=== PATIENT | female | born 1985 | race Caucasian/White ===

== ENCOUNTER 2016-11-13 17:45 | Observation (INO) | payer MEDICAID ==
[~2016-11-13] VITALS: Ht 160 cm; Wt 54.0 kg
[~2016-11-13 17:45] MED LIST: LISI-360 PO; METH10TA PO; XANA1TAB6 PO
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
[2016-11-13] MEDS ORDERED: DEXTROSE 5%-LACTATED RING INJ 1,000 ML IV ONE (18:45)
[2016-11-13 19:39] LABS: BACTERIA, URINE MANY /hpf; BLOOD, URINE NEG (NEG); COMMENT (UR) CULTURE INDICATED; CULTURE IF INDICATED CULTURE INDICATED; GLUCOSE,URINE NEG (NEG); KETONE, URINE NEG (NEG); NITRITE,URINE NEG (NEG); SQUAMOUS EPITHELIAL CELL URINE <1 /hpf (0-5); URINE COLOR YELLOW (YELLW/STRAW)
[2016-11-13] MEDS ORDERED: cloNIDine HCL 0.1 MG TAB PO PRN (19:45)
[2016-11-13] MEDS ORDERED: SODIUM CHLORIDE 0.9% FLUSH 10 ML FLUSH IV FLUSH PRN (19:45)
[2016-11-13] MEDS ORDERED: PROMETHAZINE HCL 25 MG TAB PO PRN (19:45)
[2016-11-13] MEDS ORDERED: ONDANSETRON ODT 4 MG TAB PO PRN (19:45)
[2016-11-13] MEDS ORDERED: ACETAMINOPHEN 325 MG TAB PO PRN (19:45)
[2016-11-13] MEDS ORDERED: ONDANSETRON HCL 4 MG/2 ML VIAL IV PRN (19:45)
[2016-11-13] MEDS ORDERED: ALUMINUM/MAGNESIUM/SIMETH 30 ML CUP PO PRN (19:45)
[2016-11-13 20:38] LABS: HEMATOCRIT 28.1 % (35.0-46.0); MEAN CELL VOLUME 90.2 FL (80.0-100.0); MEAN CORPUSCULAR HEMOGLOBIN 29.9 PG (27.0-34.0); MEAN CORPUSCULAR HGB CONC 33.1 % (32.0-36.0); PLATELET COUNT 282 TH/MM3 (150-450); RED BLOOD COUNT 3.11 MIL/MM3 (4.00-5.30); RED CELL DISTRIBUTION WIDTH 13.1 % (11.6-17.2); REVIEW FLAG FINAL; WHITE BLOOD COUNT 8.9 TH/MM3 (4.0-11.0)
[2016-11-13] MEDS: SODIUM CHLORIDE 0.9% FLUSH 10 ML FLUSH IV FLUSH SCH (21:00)
[2016-11-13 21:02] LABS: ALT (GPT) 13 U/L (10-53); ANION GAP 8 MEQ/L (5-15); AST (GOT) 15 U/L (15-37); BICARBONATE 26.7 MEQ/L (21.0-32.0); BLOOD UREA NITROGEN 7 MG/DL (7-18); CHLORIDE 103 MEQ/L (98-107); GLOMERULAR FILTRATION RATE 106 ML/MIN (>89); POTASSIUM 3.8 MEQ/L (3.5-5.1); SODIUM (NA) 138 MEQ/L (136-145)
[2016-11-13 21:05] LABS: ALKALINE PHOSPHATASE 140 U/L (45-117); TOTAL BILIRUBIN ADULT 0.2 MG/DL (0.2-1.0)
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
[2016-11-13 21:43] LABS: RUBELLA STATUS IMMUNE (IMMUNE)
[2016-11-13] MEDS: ALPRAZolam 1 MG TAB PO SCH (22:09)
[2016-11-14] MEDS: ALPRAZolam 1 MG TAB PO SCH (06:00)
[2016-11-14] MEDS ORDERED: DEXTROSE 5%-LACTATED RING INJ 1,000 ML IV ONE (08:30)
[2016-11-14] MEDS: SODIUM CHLORIDE 0.9% FLUSH 10 ML FLUSH IV FLUSH SCH ×2 (09:20→21:00)
[2016-11-14] MEDS: MULTIVIT/MIN/PREN/FOL AC/IRON PRENATAL TAB PO SCH (09:26)
[2016-11-14] MEDS: DOCUSATE SODIUM 100 MG CAP PO SCH (09:27)
[2016-11-14] MEDS: ALPRAZolam 1 MG TAB PO PRN ×2 (09:28→19:47)
--- NOTE | 2016-11-14 09:51 | PD.OB.ANTE ---
Subjective Interval History 31 turkish swf at 36 5/7 by dates from other sources, brought to [facility] after missing her ultrasound appointment in my office this week and not getting her opioid maintenance medication renewed. She is in active addiction and not yet ready for recovery, actively deceiving us and others involved in her life. Last UDS in my office on 10/29 was positive for many opioids, methamphetamine, benzo' s. She does insists she is not using anything IV at this time. She is likely snorting or taking by mouth or smoking. She was first seen at the [facility] clinic and asked to be transitioned from 140 mg methadone daily as she can no longer afford. We discussed and I gave her one week of oxy 30's , seven per day, based on her described usage patterns. The second visit with the positive UDS, she was counseled in great detail, with her significant other present, and given oxy 30's six per day. We explained we will transition her to subutex soon , but she has many rationalizations like she can't afford, etc. I explained we need a fur cleaner urine to get pre authorization from [facility]. When she missed her Thursday appointment, she did not get any opioid renewal. She states her last dose was Thursday. She was obviously impaired on admission yesterday, when I evaluated her with Dr. Gonzales. She appears impaired this am. 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 She is slurring her words. Our hospital urine drug screen is inadequate to picker/puller specific opioids, benzo's and other substances and is still pending. Objective Lab & Micro Results Test 11/13/16 18:50 11/13/16 19:20 Urine Color YELLOW Urine Turbidity HAZY Urine pH 6.0 Urine Specific [place] 1.005 Urine Protein NEG mg/dL Urine Glucose (UA) NEG mg/dL Urine Ketones NEG mg/dL Urine Occult Blood NEG Urine Nitrite NEG Urine Bilirubin NEG Urine Urobilinogen LESS THAN 2.0 MG/DL Urine Leukocyte Esterase NEG Urine RBC LESS THAN 1 /hpf Urine WBC LESS THAN 1 /hpf Urine Squamous Epithelial Cells <1 /hpf Urine Amorphous Sediment RARE Urine Bacteria MANY /hpf Microscopic Urinalysis Comment CULTURE INDICATED White Blood Count 8.9 TH/MM3 Red Blood Count 3.11 MIL/MM3 Hemoglobin 9.3 GM/DL Hematocrit 28.1 % Mean Corpuscular Volume 90.2 FL Mean Corpuscular Hemoglobin 29.9 PG Mean Corpuscular Hemoglobin Concent 33.1 % Red Cell Distribution Width 13.1 % Platelet Count 282 TH/MM3 Mean Platelet Volume 8.3 FL Blood Urea Nitrogen 7 MG/DL Creatinine 0.65 MG/DL Random Glucose 68 MG/DL Total Protein 6.0 GM/DL Albumin 2.5 GM/DL Calcium Level 8.8 MG/DL Alkaline Phosphatase 140 U/L Aspartate Amino Transf (AST/SGOT) 15 U/L Alanine Aminotransferase (ALT/SGPT) 13 U/L Total Bilirubin 0.2 MG/DL Sodium Level 138 MEQ/L Potassium Level 3.8 MEQ/L Chloride Level 103 MEQ/L Carbon Dioxide Level 26.7 MEQ/L Anion Gap 8 MEQ/L Estimat Glomerular Filtration Rate 106 ML/MIN Urine Opiates Screen NEG Urine Barbiturates Screen NEG Urine Amphetamines Screen NEG Urine Benzodiazepines Screen POS Urine Cocaine Screen NEG Urine Cannabinoids Screen NEG Rubella Immunity Screen IMMUNE Rubella Antibody, Quantitative 339.0 IU/mL Date/Time Source Procedure Growth Status 11/13/16 18:50 Urine Clean Catch Urine Culture Pending Received Physical Exam GENERAL: Well-nourished, well-developed patient. CARDIOVASCULAR: Regular rate and rhythm without murmurs, gallops, or rubs. RESPIRATORY: Breath sounds equal bilaterally. No accessory muscle use. ABDOMEN/GI: Abdomen soft, non-tender. FH 34 cervix long closed posterior strip has diminished BTBV but not absent. No declerations. EXTREMITIES: No cyanosis or edema, non-tender, without signs of DVT. Assessment and Plan Problem List: (1) Opioid abuse with intoxication ICD Codes: F11.129 - Opioid abuse with intoxication, unspecified (2) Opioid abuse with opioid-induced disorder ICD Codes: F11.19 - Opioid abuse with unspecified opioid-induced disorder (3) Previous section ICD Codes: Z98.891 - History of uterine scar from previous surgery Assessment and Plan Need ultrasound today to assess status will like need repeat C/S when appropriate (prior section was after failed induction for pre eclampsia) consider PC or better [place] if family will help. nicotine patch and oxy's today. Declines Subutex unfortunately Goal is to minimize illicit use with risk of contamination etc. by providing legal and safe opioid until delivery. Ideally needs in patient monitoring as she cannot be trusted. Yadira Lacey MD Nov 14, 2016 09:51
[2016-11-14 21:00] VITALS: RESP 18
[2016-11-15] MEDS: ALPRAZolam 1 MG TAB PO PRN (03:59)
--- NOTE | 2016-11-15 08:17 | PD.OB.ANTE ---
Subjective Diagnosis: (1) Opioid abuse with intoxication (2) Opioid abuse with opioid-induced disorder (3) Previous section Interval History HD#2, No significant c/o Objective Vital Signs Vital Signs Date Time Temp Pulse Resp B/P (MAP) Pulse Ox O2 Delivery O2 Flow Rate FiO2 11/14/16 21:00 18 Lab & Micro Results Date/Time Source Procedure Growth Status 11/13/16 18:50 Urine Clean Catch Urine Culture - Preliminary NO GROWTH IN 24 HOURS. Resulted Physical Exam GENERAL: Well-nourished, well-developed patient. CARDIOVASCULAR: Regular rate and rhythm without murmurs, gallops, or rubs. RESPIRATORY: Breath sounds equal bilaterally. No accessory muscle use. ABDOMEN/GI: Abdomen soft, non-tender.] FHT's: Category: 1, no UC EXTREMITIES: No cyanosis or edema, non-tender, without signs of DVT. Assessment and Plan Problem List: (1) Opioid abuse with intoxication ICD Codes: F11.129 - Opioid abuse with intoxication, unspecified (2) Opioid abuse with opioid-induced disorder ICD Codes: F11.19 - Opioid abuse with unspecified opioid-induced disorder (3) Previous section ICD Codes: Z98.891 - History of uterine scar from previous surgery Assessment and Plan 36 6/7 weeks, stable, care plan delineated by Dr Lacey. Geovani Gramajo MD Nov 15, 2016 08:17
[2016-11-15] MEDS: SODIUM CHLORIDE 0.9% FLUSH 10 ML FLUSH IV FLUSH SCH (08:28)
[2016-11-15] MEDS: MULTIVIT/MIN/PREN/FOL AC/IRON PRENATAL TAB PO SCH (09:00)
[2016-11-15] MEDS ORDERED: NICOTINE 21 MG/24 HR PATCH T-DERMAL SCH (09:00)
[2016-11-15] MEDS ORDERED: REMOVE OLD PATCH T-DERMAL SCH (09:00)
[2016-11-15] MEDS: DOCUSATE SODIUM 100 MG CAP PO SCH (09:00)
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
[2016-11-15] MEDS ORDERED: CLON.1 PO (09:24)
[2016-11-15] MEDS ORDERED: OXYC-395 PO (09:24)
[2016-11-15] MEDS ORDERED: HYDR50CA PO (09:24)
[2016-11-15] MEDS ORDERED: XANA1TAB2 PO (09:24)
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
--- NOTE | 2016-11-15 09:27 | HHI.DCPOC ---
Discharge Care Plan Report Symptoms to Your Doctor -Temperature above 100.5 degrees -Redness, of incision or excessive or foul smelling drainage -Unusual pain or calf pain -Increased vaginal bleeding -Painful or difficulty urinating -Feelings of extreme sadness or anxiety after 2 weeks Goals to Promote Your Health * To prevent worsening of your condition and complications * To maintain your health at the optimal level Directions to Meet Your Goals Take your medications as prescribed Follow your dietary instruction Follow activity as directed Ensure plenty of rest for recovery Drink fluids for hydration RETURN FOR THURSDAY C SECTION Keep your appointments as scheduled Take your immunizations and boosters as scheduled If your symptoms worsen call your PCP, if no PCP go to Urgent Care Center or Emergency Room Smoking is Dangerous to Your Health. Avoid second hand smoke Call the 24-hour crisis hotline for domestic abuse at Yadira Lacey MD Nov 15, 2016 09:27
[2016-11-18 14:41] LABS: BATH SALTS (MDPV) UR NEG (NEG); ECSTASY (MDMA) UR NEG (NEG); GABAPENTIN UR NEG (NEG); HEROIN (6-ACETYLMORPHINE) UR NEG (NEG); K2 SPICE UR NEG (NEG); PHENCYCLIDINE URINE NEG (NEG)
[2016-11-18 14:42] LABS: HYDROMORPHONE U NEG (NEG)
[2016-11-18 14:47] LABS: OBMETHADONE UR POS (NEG)
== END 2016-11-15 11:51 | disposition home or self-care (01) ==
LOC: HOBED 17:45 → H2EA 20:38
PROVIDERS: ADMIT Obstetrics & Gynecology; ATTEND Obstetrics & Gynecology
DX: O99.324 Drug use complicating childbirth (principal); F11.10 Opioid abuse, uncomplicated; Z3A.36 36 weeks gestation of pregnancy; O09.213 Supervision of pregnancy with history of pre-term labor, third trimester; G89.29 Other chronic pain; M54.9 Dorsalgia, unspecified; R82.99 Other abnormal findings in urine; Z91.19 Patient's noncompliance with other medical treatment and regimen
CPT/HCPCS: 59025; 80053; 80074; 80307; 81001; 85027; 86592; 86762; 86850; 86900; 86901; 87086; 87389; 99285; G0378; G0481; J7121; 76816; 76819

== ENCOUNTER 2016-11-15 20:58 | Inpatient (IN) | payer MEDICAID ==
[~2016-11-15] VITALS: Ht 160 cm; Wt 72.1 kg
[~2016-11-15 20:58] MED LIST changes: +CLON.1 PO; +HYDR50CA PO; +OXYC-395 PO; +XANA1TAB2 PO
--- NOTE | 2016-11-15 23:42 | PD ---
HPI Chief Complaint NST report Indications: IUP at 36.6, insufficient care, history of IV drug abuse, polysubstance abuse, abdominal pain, prior delivery FHT: heart rate baseline in the 120s with good accelerations and moderate long-term variability, there are no repetitive decelerations but a couple small variables were noted upon presentation however have since resolved [place]: No regular contractions Follow-up: Continue EFM Final diagnosis: IUP at 36.6, insufficient care, history of IV drug abuse, polysubstance abuse, abdominal pain, prior delivery Travel History International Travel<30 Days: No Contact w/Intl Traveler<30Days: No Known Affected Area: No Allergies-Medications (Allergen,Severity, Reaction): Coded Allergies: No Known Allergies (Unverified , 10/19/14) Home Meds Active Scripts Oxycodone (Oxycodone) 10 Mg Tab, 30 MG PO Q6H Y for PAIN SCALE >5 for 2 Days, # 24 TAB Prov:Yadira Lacey MD 11/15/16 Hydroxyzine Pamoate (Hydroxyzine Pamoate) 50 Mg Cap, 50 MG PO Q6H Y for anxiety , agitation, rest for 2 Days, #8 CAP Prov:Yadira Lacey MD 11/15/16 Clonidine (Catapres) 0.1 Mg Tab, 0.1 MG PO Q6H Y for agitation, sweats, elevatedHR for 2 Days, #8 TAB Prov:Yadira Lacey MD 11/15/16 Alprazolam (Xanax) 1 Mg Tab, 1 MG PO Q8HR Y for anxiety for 2 Days, #6 TAB Prov:Yadira Lacey MD 11/15/16 Reported Medications Alprazolam (Xanax 1 mg) Alprazolam 1 mg Tab, 1 TAB PO TID Y for ANXIETY, TAB 10/03/14 Discontinued Reported Medications Methadone Hcl (Methadone HCl) 10 Mg Tab, 170 MG PO DAILY, TAB 10/03/14 Lisinopril 10 mg (Lisinopril 10 mg) 10 Mg Tab, 1 TAB PO DAILY, TAB 10/03/14 Review of Systems Except as stated in HPI: all other systems reviewed are Neg Data Data Orders Orders Ob/Psych Drug Screen, Urine (11/15/16 22:39) Ur Bath Salts (11/15/16 22:25) Ur Heroin (11/15/16 22:25) Ur K2 Spice (11/15/16 22:25) Ur Ecstasy (11/15/16 22:25) Phencyclidine Urine (Pcp) (11/15/16 22:25) Labs Laboratory Tests Test 11/15/16 22:25 Urine Opiates Screen NEG Urine Barbiturates Screen NEG Urine Amphetamines Screen NEG Urine Benzodiazepines Screen POS Urine Cocaine Screen NEG Urine Cannabinoids Screen NEG Lisbeth Gonzales MD Nov 15, 2016 23:41
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
[2016-11-16] MEDS ORDERED: NICOTINE 21 MG/24 HR PATCH T-DERMAL ONE (00:45)
[2016-11-16] MEDS: ALPRAZolam 1 MG TAB PO PRN ×3 (01:03→21:37)
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
[2016-11-16] MEDS: ONDANSETRON ODT 4 MG TAB PO PRN (04:08)
[2016-11-16] MEDS: cloNIDine HCL 0.1 MG TAB PO PRN (04:56)
[2016-11-16] MEDS: LACTATED RINGER'S 1000 ML IV SCH ×3 (07:15→20:35)
[2016-11-16] MEDS ORDERED: ceFAZolin 2 GM PREMIX 50 ML IV SCH (07:15)
[2016-11-16] MEDS ORDERED: CITRIC ACID-SODIUM CITRATE LIQ 30 ML UDC PO SCH (07:15)
[2016-11-16] MEDS ORDERED: LACTATED RINGER'S 1000 ML IV ONE (07:15)
[2016-11-16] MEDS: SODIUM CHLORIDE 0.9% FLUSH 10 ML FLUSH IV FLUSH SCH ×2 (08:23→21:00)
[2016-11-16 08:46] LABS: AUTOMATED NEUTROPHIL # 7.5 TH/MM3 (1.8-7.7); BASOPHIL % 0.4 % (0.0-2.0); EOSINOPHIL % 0.2 % (0.0-4.0); HEMATOCRIT 29.7 % (35.0-46.0); HEMO FLAGS DIFF FINAL; LYMPH % 27.6 % (9.0-44.0); LYMPHOCYTE # 3.1 TH/MM3 (1.0-4.8); MEAN CELL VOLUME 88.8 FL (80.0-100.0); MEAN CORPUSCULAR HEMOGLOBIN 31.7 PG (27.0-34.0); MEAN CORPUSCULAR HGB CONC 35.7 % (32.0-36.0); MONO % 5.7 % (0.0-8.0); NEUT % 66.1 % (16.0-70.0); PLATELET COUNT 310 TH/MM3 (150-450); RED BLOOD COUNT 3.34 MIL/MM3 (4.00-5.30); RED CELL DISTRIBUTION WIDTH 12.7 % (11.6-17.2); WHITE BLOOD COUNT 11.4 TH/MM3 (4.0-11.0)
--- NOTE | 2016-11-16 09:05 | PD.OB.ANTE ---
Subjective Interval History 31 yo swf [id number] at 37 0/7 weeks EGParish returned to [facility] late last evening with c/ o severe abdominal pain. High risk factors include polysubstance use, hx of prior section 18 months ago at 33 weeks for abruptio, poor care and axis 1 and II diagnoses not yet defined. Came to me through [facility] open acces clinic for substance users on 10/24/16 and has had three visits total. Only sonogram was this thursday revealing severe IUGR, placental aging with calcifications. Strip was initially poor due to recent substance use (undefined --not opioid and not on initial UDS) but improved with hydration and nutrition. Counseled on need for repeat section expediently but left yesterday to "get things done" after long conversation with me, nurses, and case sealer. Was to be using only oxycodone and small amount xanax but returned impaired with slurred speech and slow motor function. Strip is adequate without decels. Cervix long/closed posterior. Stated bleeding, but none seen. FH 35. Agrees to have section now. States pain is 9/10 with contractions and diffuse back pain. Expressing remorse and frustration. Has been counseled on risk of abruptio, uterine rupture, DIC, and risk of difficult procedure due to prior emergent section at 33 weeks. Antepartum ROS: Reports: New complaints, Contractions Objective Vital Signs Vital Signs Date Time Temp Pulse Resp B/P (MAP) Pulse Ox O2 Delivery O2 Flow Rate FiO2 11/16/16 04:09 18 Lab & Micro Results Test 11/15/16 22:25 11/16/16 00:46 11/16/16 08:00 Urine Opiates Screen NEG NEG Urine Barbiturates Screen NEG NEG Urine Amphetamines Screen NEG NEG Urine Benzodiazepines Screen POS POS Urine Cocaine Screen NEG NEG Urine Cannabinoids Screen NEG NEG White Blood Count 11.4 TH/MM3 Red Blood Count 3.34 MIL/MM3 Hemoglobin 10.6 GM/DL Hematocrit 29.7 % Mean Corpuscular Volume 88.8 FL Mean Corpuscular Hemoglobin 31.7 PG Mean Corpuscular Hemoglobin Concent 35.7 % Red Cell Distribution Width 12.7 % Platelet Count 310 TH/MM3 Mean Platelet Volume 9.3 FL Neutrophils (%) (Auto) 66.1 % Lymphocytes (%) (Auto) 27.6 % Monocytes (%) (Auto) 5.7 % Eosinophils (%) (Auto) 0.2 % Basophils (%) (Auto) 0.4 % Neutrophils # (Auto) 7.5 TH/MM3 Lymphocytes # (Auto) 3.1 TH/MM3 Monocytes # (Auto) 0.6 TH/MM3 Eosinophils # (Auto) 0.0 TH/MM3 Basophils # (Auto) 0.0 TH/MM3 CBC Comment DIFF FINAL Differential Comment Physical Exam GENERAL: Well-nourished, well-developed patient. CARDIOVASCULAR: Regular rate and rhythm without murmurs, gallops, or rubs. RESPIRATORY: Breath sounds equal bilaterally. No accessory muscle use. ABDOMEN/GI: Abdomen soft, non-tender. Fundus: 34 GENITOURINARY: External Genitalia: intact and normal in appearance long closed posterior and high FHT's: 150's with adequate BTBV no accels or decels EXTREMITIES: No cyanosis or edema, non-tender, without signs of DVT. no tracks or skin infection Assessment and Plan Assessment and Plan 37 week IUP with IUGR, premature placental aging ongoing active polysubstance use both opioid and non opioid poor care history previous section at 33weeks in 2016 for abruptio For section now will provide TAP and work on pain management in post Yadira Lacey MD Nov 16, 2016 09:05
[2016-11-16] MEDS ORDERED: SIMETHICONE 80 MG CHEWABLE TAB PO PRN (09:15)
[2016-11-16] MEDS ORDERED: SODIUM CHLORIDE 0.9% FLUSH 10 ML FLUSH IV FLUSH PRN ×2 (09:15)
[2016-11-16] MEDS ORDERED: ONDANSETRON HCL 4 MG/2 ML VIAL IV PUSH PRN (09:15)
[2016-11-16] MEDS ORDERED: ACETAMINOPHEN 1000 MG/100 ML 100 ML IV ONE ×2 (09:15→11:09)
[2016-11-16] MEDS ORDERED: BUPIVACAINE LIPOSOME PF 1.3% 20 ML VIAL ONE (09:35)
--- NOTE | 2016-11-16 10:01 | PD.OB.DELI ---
Procedure Note Section Procedure Pre Op Diagnosis: (1) IUGR (intrauterine growth retardation), delivered, current hospitalization (2) Opioid abuse with intoxication (3) Opioid abuse with opioid-induced disorder Post Op Diagnosis: (1) Opioid abuse with intoxication (2) Opioid abuse with opioid-induced disorder (3) IUGR (intrauterine growth retardation), delivered, current hospitalization Performed by Yadira Lacey Procedure: Repeat Low Transverse Sec Indication for delivery: Nonreassuring heart tracing, Maternal medical problems Previous condition: None Informed consent obtained: For anesthesia, For procedure Confirmed correct: Patient, Procedure, Site, Time-out taken Anesthesia: Spinal Medication prior to procedure: As documented in eMAR, Analgesics, Antacids, Antibiotics, IV, Antiemetics Monitoring during procedure: Blood pressure monitoring Urinary catheter: Inserted using sterile technique, To dependent drainage Sterile preparation: Duraprep, In usual fashion Position: Supine with wedge to right side Operative Features Skin Incision: Pfannenstiel Uterine Incision: Low transverse w/knife / blunt ext Membranes Ruptured: Artificially Presentation: Occiput anterior Delivery date: Nov 16, 2016 Delivery time: 10:00 Delivery of infant: Assisted Infant: Male One Minute : 9 Five Minute : 9 Weight: 5 8 Status of infant: Viable, Cord blood, Umbilical cord, Nursery present Placenta delivered: Intact, Sent to pathology Medications: Antibiotics, Oxytocin Estimated blood loss: 500 Procedure tolerated: Well Yadira Lacey MD Nov 16, 2016 10:01
[2016-11-16] MEDS ORDERED: OXYTOCIN 30 UNITS-500ML PREMIX 500 ML IV ONE (11:00)
[2016-11-16] MEDS ORDERED: OXYTOCIN 30 UNITS-500ML PREMIX 500 ML ONE (11:09)
[2016-11-16] MEDS ORDERED: MORPHINE SULFATE PF 5 MG/10 ML VIAL EPIDURAL ONE (12:00)
[2016-11-16] MEDS ORDERED: MIDAZOLAM HCL 2 MG/2 ML VIAL IV ONE (12:00)
[2016-11-16] MEDS ORDERED: LACTATED RINGER'S 1000 ML INJ 1,000 ML IV ONE (12:00)
[2016-11-16] MEDS ORDERED: ONDANSETRON HCL 4 MG/2 ML VIAL IV PUSH ONE (12:00)
[2016-11-16] MEDS ORDERED: OXYTOCIN 10 UNIT/ML AMP IV ONE (12:00)
[2016-11-16] MEDS ORDERED: DEXAMETHASONE SOD PHOS 4 MG/ML VIAL IV ONE (12:00)
[2016-11-16] MEDS ORDERED: EPIDURAL-NALOXONE HCL 0.4 MG/ML AMP IV PUSH PRN (14:00)
[2016-11-16] MEDS ORDERED: EPIDURAL-NO SYSTEMIC NARCOTICS PRN (14:00)
[2016-11-16] MEDS ORDERED: EPIDURAL-DO NOT ADMINISTER ANTICOAGULANTS PRN (14:00)
[2016-11-16] MEDS ORDERED: EPIDURAL-DIPHENHYDRAMINE HCL 50 MG CAP PO PRN (14:00)
[2016-11-16] MEDS ORDERED: EPIDURAL-DIPHENHYDRAMINE HCL 50 MG/ML VIAL IV PUSH PRN (14:00)
[2016-11-16 14:11] LABS: BLOOD, URINE NEG (NEG); COMMENT (UR) CULT NOT INDICATED; CULTURE IF INDICATED CULT NOT INDICATED; GLUCOSE,URINE NEG (NEG); KETONE, URINE NEG (NEG); MUCUS URINE FEW /lpf (OCC); NITRITE,URINE NEG (NEG); PH, URINE 7.5 (5.0-8.5); SQUAMOUS EPITHELIAL CELL URINE <1 /hpf (0-5); URINE COLOR YELLOW (YELLW/STRAW)
--- NOTE | 2016-11-16 16:22 | MP ---
cc: YADIRA DEVI DATE OF SURGERY: 11/16/2016. PREOPERATIVE DIAGNOSIS: 37-week intrauterine with polysubstance use disorder and active addiction, significant growth restriction and aging placenta. POSTOPERATIVE DIAGNOSIS: 37-week intrauterine with polysubstance use disorder and active addiction, significant growth restriction and aging placenta. OPERATION: Repeat low transverse segment section. SURGEON: Yadira Devi MD. BOILER HOUSE MECHANIC: January Cid. ANESTHESIA: Spinal with Duramorph followed by a tap. FINDINGS: A living male was delivered from [facility] with clear fluid and no nuchal cord. He weighed approximately 5 pounds and change. His Apgars were 9 at one and 9 at five. He was very hypertonic. The placenta was delivered manually with a three-vessel cord intact and sent to pathology. ESTIMATED BLOOD LOSS: 500 cc. COUNTS: Sponge, needle and instrument counts were correct. DISPOSITION: The mom and baby appeared to have tolerated the procedure well. The mom was very anxious and distraught during the procedure. DESCRIPTION OF THE PROCEDURE IN DETAIL: The patient was appraised both yesterday and today in detail of the indications for the surgery, the risks of the surgery, the risks of not proceeding at this time, benefits and expectations. She was taken to the back where she a was given a spinal with Duramorph and placed in dorsal supine position with weight off the vena cava. She received 2 grams of Ancef prior to cut. A time-out was performed with all in attendance. She had sequential stockings on. A Craig catheter had been placed after the spinal and we waited 3 minutes for the prep to dry. After assuring adequate analgesia, a Pfannenstiel's incision was made that excised her previous keloid and then it was taken down to the rectus fascia. The rectus fascia was incised laterally and taken off the rectus muscle. The rectus muscle was in the midline and the parietal peritoneum entered bluntly. A bladder flap was created off the lower uterine segment and an incision into the intrauterine cavity revealed clear fluid. The incision was extended in a vertical fashion bluntly and the was delivered with the findings as noted above. The cord was clamped x2 after a 45-second delay, cut and he was handed to the neonatology team in attending. A cord segment was obtained for gases and then cord blood was obtained. The uterus was left in situ to avoid additional postoperative pain in this pain- compromised individual. The placenta was delivered manually intact with a three-vessel cord. The uterus was cleaned of clot and closed with chromic in a running interlocking fashion with a second horizontal imbricating layer. Copious irrigation was then performed and then the incision was checked very carefully for hemostasis. Then the rectus muscle and peritoneum were closed together in a running fashion with care to avoid underlying bowel. Then the rectus fascia was closed with Vicryl in a non interlocking fashion. The area was irrigated again. The subcutaneous fat was closed with 3-0 plain and the skin was closed with 4-0 Vicryl on a Rafael needle. Estimated blood loss was 500 mL. Sponge, instrument, needle counts were correct. MD DONN Crawford/JCIrineo /10:02 AM /4:11 PM
[2016-11-16] MEDS: KETOROLAC TROMETHAMINE 60 MG/2 ML (IM) VIAL IM PRN (16:23)
[2016-11-16] MEDS: LACTATED RINGER'S 1000 ML INJ 1,000 ML IV SCH (17:53)
[2016-11-16] MEDS ORDERED: OXYTOCIN 30 UNITS-500ML PREMIX 500 ML IV PRN (19:15)
[2016-11-16] MEDS ORDERED: SODIUM CHLORIDE 0.9% FLUSH 10 ML FLUSH IV FLUSH SCH (21:00)
[2016-11-16] MEDS: DOCUSATE SODIUM 50 MG/SENNA 8.6 MG TAB PO PRN (21:37)
[2016-11-17] MEDS: LACTATED RINGER'S 1000 ML INJ 1,000 ML IV SCH (00:13)
[2016-11-17] MEDS: LACTATED RINGER'S 1000 ML IV SCH ×4 (03:15→23:15)
[2016-11-17 05:53] LABS: AUTOMATED NEUTROPHIL # 8.6 TH/MM3 (1.8-7.7); BASOPHIL % 0.2 % (0.0-2.0); EOSINOPHIL % 0.3 % (0.0-4.0); HEMATOCRIT 25.9 % (35.0-46.0); HEMO FLAGS DIFF FINAL; LYMPH % 27.1 % (9.0-44.0); LYMPHOCYTE # 3.5 TH/MM3 (1.0-4.8); MEAN CELL VOLUME 89.6 FL (80.0-100.0); MEAN CORPUSCULAR HEMOGLOBIN 30.2 PG (27.0-34.0); MEAN CORPUSCULAR HGB CONC 33.7 % (32.0-36.0); MONO % 6.3 % (0.0-8.0); NEUT % 66.1 % (16.0-70.0); PLATELET COUNT 281 TH/MM3 (150-450); RED BLOOD COUNT 2.89 MIL/MM3 (4.00-5.30); RED CELL DISTRIBUTION WIDTH 12.9 % (11.6-17.2)
[2016-11-17] MEDS: ALPRAZolam 1 MG TAB PO PRN ×3 (06:10→18:36)
[2016-11-17] MEDS ORDERED: ACETAMINOPHEN 1000 MG/100 ML VIAL IV ONE (08:15)
--- NOTE | 2016-11-17 08:16 | HHI.OB ---
Subjective Post Operative Day: 1 Remarks Complaining of pain 9/10 despite resting comfortably. not aggitated this am. Cigarettes at bedside and placed in purse and placed in corner Objective Vitals/I&O Intake & Output 11/17/16 11/17/16 07:00 19:00 Intake Total 3454 ml Balance 3454 ml Intake IV Total 3454 ml Result Diagram: 11/17/16 0432 Objective Remarks GENERAL: Well-nourished, well-developed patient. CARDIOVASCULAR: Regular rate and rhythm without murmurs, gallops, or rubs. RESPIRATORY: Breath sounds equal bilaterally. No accessory muscle use. ABDOMEN/GI: Abdomen soft, non-tender, bowel sounds present. Incision: Clean, dry and intact. Fundus: Firm, non-tender at umbilicus. GENITOURINARY: Light to moderate bleeding. EXTREMITIES: No cyanosis or edema, non-tender, without signs of DVT. Medications and IVs Current Medications Medications (Trade) Dose Ordered Sig/Teddy Route Start Time Stop Time Status Last Admin (Tylenol) 650 mg Q4H PRN PO 11/16/16 00:00 (NS Flush) 2 ml BID IV FLUSH 11/16/16 09:00 (NS Flush) 2 ml UNSCH PRN IV FLUSH 11/16/16 00:00 (Zofran Odt) 4 mg Q6H PRN PO 11/16/16 00:00 11/16/16 04:08 (Roxicodone) 30 mg Q6H PRN PO 11/16/16 01:00 11/17/16 06:10 (Xanax) 1 mg Q8H PRN PO 11/16/16 00:45 11/17/16 06:10 (Catapres) 0.1 mg Q6H PRN PO 11/16/16 00:45 11/16/16 04:56 (Vistaril) 50 mg Q6H PRN PO 11/16/16 00:45 11/17/16 00:30 Lactated Ringer's 1,000 ml @ 150 mls/hr Q6H40M IV 11/16/16 07:15 11/17/16 03:15 (Bicitra Liq) 30 ml AUTOMOTIVE BRAKE TECHNICIAN PO 11/16/16 07:15 11/19/16 07:14 11/16/16 08:57 Cefazolin Sodium/ Dextrose 50 ml @ 100 mls/hr AUTOMOTIVE BRAKE TECHNICIAN IV 11/16/16 07:15 11/19/16 07:14 11/16/16 08:31 Lactated Ringer's 1,000 ml @ 100 mls/hr Q10H IV 11/16/16 14:11 11/17/16 10:10 11/17/16 00:13 Oxytocin 500 ml @ 100 mls/hr UNSCH X1 PRN IV 11/16/16 19:15 11/17/16 19:14 (Mylicon Chew) 80 mg QID PRN PO 11/16/16 09:15 (Toradol Inj) 30 mg Q6H PRN IM 11/16/16 11:00 11/17/16 10:59 11/16/16 16:23 (Thao-Colace) 2 tab Q12H PRN PO 11/16/16 09:15 11/16/16 21:37 (M-M-R Ii Inj) 0.5 ml ONCE ONCE SQ 11/17/16 16:00 11/17/16 16:01 (Boostrix Inj) 0.5 ml ONCE ONCE IM 11/17/16 16:00 11/17/16 16:01 (Zofran Inj) 4 mg Q6H PRN IV PUSH 11/16/16 09:15 11/16/16 21:37 (Roxicodone) 30 mg Q6H PO 11/16/16 14:00 11/17/16 02:00 Miscellaneous Information NO SYSTEMIC NARCOTICS TO BE GIVEN FO... UNSCH PRN .XX 11/16/16 14:00 11/17/16 13:59 (Narcan Inj) 0.4 mg UNSCH PRN IV PUSH 11/16/16 14:00 11/17/16 13:59 (Benadryl Inj) 25 mg Q6H PRN IV PUSH 11/16/16 14:00 11/17/16 13:59 (Benadryl) 50 mg Q6H PRN PO 11/16/16 14:00 11/17/16 13:59 Miscellaneous Information ALL NURSING DEPARTMENTS UNSCH PRN .XX 11/16/16 14:00 11/17/16 13:59 Assessment/Plan Assessment and Plan POD 1 section at 37 weeks for IUGR, active polysubstance use baby in NICU after procedure yesterday, Layne was visited by FOB . I am informed his behavior and demeanor were consistent with significant impairment. I was called to ask that we reduce risk to layne on illicit drug use in house, while recovering from surgery. Order made that no visitors until her IV was removed. During section yesterday I did see that one track radha in right antecubital was fresh. She adamantly denies past or current IV use but her arms show significant tracks. I again asked her if she had used anything besides opioids that could be affected the infant and she denies this. I explained she has to have her ortega and IV out and ambulate to avoid blood clots and pneumonia. She seems to be moving in the bed quite well. Will get ofirmev and then DC IV. Oxy every 6 for opioid debt and address pain on prn basis. Case management today. po iron for her anemia Yadira Lacey MD Nov 17, 2016 08:16
[2016-11-17] MEDS: KETOROLAC TROMETHAMINE 60 MG/2 ML (IM) VIAL IM PRN (08:29)
[2016-11-17] MEDS: SODIUM CHLORIDE 0.9% FLUSH 10 ML FLUSH IV FLUSH SCH ×2 (09:00→19:51)
[2016-11-17] MEDS: FERROUS SULFATE 325 MG (65 MG ELEMENTAL IRON) TAB PO SCH (12:34)
[2016-11-17] MEDS: DOCUSATE SODIUM 50 MG/SENNA 8.6 MG TAB PO PRN (12:35)
[2016-11-17] MEDS ORDERED: MEASLES, MUMPS, RUBELLA VACCINE 0.5 ML VIAL SQ ONE (16:00)
[2016-11-17] MEDS ORDERED: DIPHTH/TETANUS/ACEL PERTUSSIS (BOOSTER) 0.5 ML VIAL/PFS IM ONE (16:00)
[2016-11-17] MEDS: cloNIDine HCL 0.1 MG TAB PO PRN ×2 (16:24→22:35)
[2016-11-17] MEDS: NICOTINE 21 MG/24 HR PATCH T-DERMAL SCH (19:45)
[2016-11-18] MEDS: ALPRAZolam 1 MG TAB PO PRN ×3 (02:40→19:09)
[2016-11-18] MEDS: ACETAMINOPHEN 325 MG TAB PO PRN ×4 (02:40→19:09)
[2016-11-18] MEDS: LACTATED RINGER'S 1000 ML IV SCH ×2 (05:55→19:15)
[2016-11-18] MEDS: FERROUS SULFATE 325 MG (65 MG ELEMENTAL IRON) TAB PO SCH (07:57)
[2016-11-18] MEDS: REMOVE OLD NICODERM (NICOTINE) PATCH T-DERMAL SCH (07:58)
[2016-11-18] MEDS: NICOTINE 21 MG/24 HR PATCH T-DERMAL SCH (07:58)
[2016-11-18] MEDS: cloNIDine HCL 0.1 MG TAB PO PRN (08:05)
--- NOTE | 2016-11-18 08:27 | HHI.OB ---
Subjective Post Operative Day: 2 Remarks Resting quietly has been smoking in her room, now has the nicotine patch very subdued today has not seen baby. Wants to have pain medication first Objective Vitals/I&O Vital Signs Date Time Temp Pulse Resp B/P (MAP) Pulse Ox O2 Delivery O2 Flow Rate FiO2 11/17/16 23:38 18 Result Diagram: 11/17/16 0432 Objective Remarks GENERAL: Well-nourished, well-developed patient. CARDIOVASCULAR: Regular rate and rhythm without murmurs, gallops, or rubs. RESPIRATORY: Breath sounds equal bilaterally. No accessory muscle use. ABDOMEN/GI: Abdomen soft, non-tender, bowel sounds present. Incision: Clean, dry and intact. Fundus: Firm, non-tender at umbilicus. GENITOURINARY: Light to moderate bleeding. EXTREMITIES: No cyanosis or edema, non-tender, without signs of DVT. Medications and IVs Current Medications Medications (Trade) Dose Ordered Sig/Teddy Route Start Time Stop Time Status Last Admin (Tylenol) 650 mg Q4H PRN PO 11/16/16 00:00 11/18/16 07:23 (NS Flush) 2 ml BID IV FLUSH 11/16/16 09:00 (NS Flush) 2 ml UNSCH PRN IV FLUSH 11/16/16 00:00 (Zofran Odt) 4 mg Q6H PRN PO 11/16/16 00:00 11/16/16 04:08 (Xanax) 1 mg Q8H PRN PO 11/16/16 00:45 11/18/16 02:40 (Catapres) 0.1 mg Q6H PRN PO 11/16/16 00:45 11/18/16 08:05 (Vistaril) 50 mg Q6H PRN PO 11/16/16 00:45 11/18/16 01:42 Lactated Ringer's 1,000 ml @ 150 mls/hr Q6H40M IV 11/16/16 07:15 11/17/16 03:15 (Bicitra Liq) 30 ml FINANCIAL COST ANALYST PO 11/16/16 07:15 11/19/16 07:14 11/16/16 08:57 Cefazolin Sodium/ Dextrose 50 ml @ 100 mls/hr FINANCIAL COST ANALYST IV 11/16/16 07:15 11/19/16 07:14 11/16/16 08:31 (Mylicon Chew) 80 mg QID PRN PO 11/16/16 09:15 (Thao-Colace) 2 tab Q12H PRN PO 11/16/16 09:15 11/17/16 12:35 (Zofran Inj) 4 mg Q6H PRN IV PUSH 11/16/16 09:15 11/16/16 21:37 (Ferrous Sulfate) 325 mg DAILY PO 11/17/16 09:00 11/18/16 07:57 (Roxicodone) 30 mg Q6H PO 11/17/16 16:30 11/18/16 04:30 (Habitrol 21 Mg Patch.24 Hr) 1 patch DAILY T-DERMAL 11/17/16 19:00 11/18/16 07:58 Miscellaneous Information 1 DAILY T-DERMAL 11/18/16 09:00 11/18/16 07:58 Assessment/Plan Assessment and Plan POD 1 section at 37 weeks for IUGR, active polysubstance use baby in NICU after procedure yesterday, Layne was visited by FRANCESCO . I am informed his behavior and demeanor were consistent with significant impairment. I was called to ask that we reduce risk to layne on illicit drug use in house, while recovering from surgery. Order made that no visitors until her IV was removed. During section yesterday I did see that one track radha in right antecubital was fresh. She adamantly denies past or current IV use but her arms show significant tracks. I again asked her if she had used anything besides opioids that could be affected the infant and she denies this. I explained she has to have her ortega and IV out and ambulate to avoid blood clots and pneumonia. She seems to be moving in the bed quite well. Will get ofirmev and then DC IV. Oxy every 6 for opioid debt and address pain on prn basis. Case management today. po iron for her anemia POD 2 post op recovery seems uneventful. Discussed with Layne and FRANCESCO today that opioid management needs to be addressed jail. I explained I cannot provide opioids after 6 weeks post . Options are suboxone and transition to [facility] or other buprenorphine provider; methadone clinic, or finding a pain specialist to address back pain and dependence with other alternatives. Layne states she was on 210 mg of oxycodone and morphine daily from physicians in [place]. I explained I cannot prescribe for her pain and dependence outside post period and cannot prescribe those doses during the 6 weeks. Realistically needs to address anxiety and depression concurrently. I have not been contacted by any court or DCF personnel regarding . Anticipate discharge tomorrow. Will write for current meds for 6 weeks, as she declines transitioning to suboxone at this time. Yadira Lacey MD Nov 18, 2016 08:27
[2016-11-18] MEDS: SODIUM CHLORIDE 0.9% FLUSH 10 ML FLUSH IV FLUSH SCH (20:40)
[2016-11-18 22:10] VITALS: RESP 18
[2016-11-19] MEDS: cloNIDine HCL 0.1 MG TAB PO PRN (01:15)
[2016-11-19] MEDS: ALPRAZolam 1 MG TAB PO PRN ×2 (03:11→10:52)
--- NOTE | 2016-11-19 07:50 | HHI.OB ---
Subjective Post Operative Day: 3 Remarks Remains subdued Has not yet seen the baby feels pain is still not controlled Objective Vitals/I&O Vital Signs Date Time Temp Pulse Resp B/P (MAP) Pulse Ox O2 Delivery O2 Flow Rate FiO2 11/18/16 22:10 18 Result Diagram: 11/17/16 0432 Objective Remarks GENERAL: Well-nourished, well-developed patient. CARDIOVASCULAR: Regular rate and rhythm without murmurs, gallops, or rubs. RESPIRATORY: Breath sounds equal bilaterally. No accessory muscle use. ABDOMEN/GI: Abdomen soft, non-tender, bowel sounds present. Incision: Clean, dry and intact. Fundus: Firm, non-tender at umbilicus. GENITOURINARY: Light to moderate bleeding. EXTREMITIES: No cyanosis or edema, non-tender, without signs of DVT. Medications and IVs Current Medications Medications (Trade) Dose Ordered Sig/Teddy Route Start Time Stop Time Status Last Admin (Tylenol) 650 mg Q4H PRN PO 11/16/16 00:00 11/18/16 19:09 (NS Flush) 2 ml BID IV FLUSH 11/16/16 09:00 (NS Flush) 2 ml UNSCH PRN IV FLUSH 11/16/16 00:00 (Zofran Odt) 4 mg Q6H PRN PO 11/16/16 00:00 11/16/16 04:08 (Xanax) 1 mg Q8H PRN PO 11/16/16 00:45 11/19/16 03:11 (Catapres) 0.1 mg Q6H PRN PO 11/16/16 00:45 11/19/16 01:15 (Vistaril) 50 mg Q6H PRN PO 11/16/16 00:45 11/18/16 01:42 Lactated Ringer's 1,000 ml @ 150 mls/hr Q6H40M IV 11/16/16 07:15 11/17/16 03:15 (Mylicon Chew) 80 mg QID PRN PO 11/16/16 09:15 (Thao-Colace) 2 tab Q12H PRN PO 11/16/16 09:15 11/17/16 12:35 (Zofran Inj) 4 mg Q6H PRN IV PUSH 11/16/16 09:15 11/16/16 21:37 (Ferrous Sulfate) 325 mg DAILY PO 11/17/16 09:00 11/18/16 07:57 (Roxicodone) 30 mg Q6H PO 11/17/16 16:30 11/19/16 06:00 (Habitrol 21 Mg Patch.24 Hr) 1 patch DAILY T-DERMAL 11/17/16 19:00 11/18/16 07:58 Miscellaneous Information 1 DAILY T-DERMAL 11/18/16 09:00 11/18/16 07:58 Assessment/Plan Assessment and Plan POD 1 section at 37 weeks for IUGR, active polysubstance use baby in NICU after procedure yesterday, Layne was visited by FRANCESCO . I am informed his behavior and demeanor were consistent with significant impairment. I was called to ask that we reduce risk to layne on illicit drug use in house, while recovering from surgery. Order made that no visitors until her IV was removed. During section yesterday I did see that one track radha in right antecubital was fresh. She adamantly denies past or current IV use but her arms show significant tracks. I again asked her if she had used anything besides opioids that could be affected the and she denies this. I explained she has to have her ortega and IV out and ambulate to avoid blood clots and pneumonia. She seems to be moving in the bed quite well. Will get ofirmev and then DC IV. Oxy every 6 for opioid debt and address pain on prn basis. Case management today. po iron for her anemia POD 2 post op recovery seems uneventful. Discussed with Layne and FRANCESCO today that opioid management needs to be addressed long term care phlebotomist. I explained I cannot provide opioids after 6 weeks post . Options are suboxone and transition to [facility] or other buprenorphine provider; methadone clinic, or finding a pain specialist to address back pain and dependence with other alternatives. Layne states she was on 210 mg of oxycodone and morphine daily from physicians in [place]. I explained I cannot prescribe for her pain and dependence outside post period and cannot prescribe those doses during the 6 weeks. Realistically needs to address anxiety and depression concurrently. I have not been contacted by any court or DCF personnel regarding infant. Anticipate discharge tomorrow. Will write for current meds for 6 weeks, as she declines transitioning to suboxone at this time. POD 3 Have discussed [facility] as an option. Could consider going on MAT (they are beginning a new program) or post detox; although she is not ready for abstinence based recovery. Did not want to transition to suboxone although she realizes no physician will continue her current doses of oxycodone on an outpatient basis. Would benefit from psychiatric evaluation and treatment for depression, PTSD and severe anxiety disorder. Discharge today with one week of medication and agreement to treat for 5 weeks before she must seek an alternative. Yadira Lacey MD Nov 19, 2016 07:50
[2016-11-19] MEDS ORDERED: FERR325T20 PO (07:57)
[2016-11-19] MEDS ORDERED: XANA1TAB2 PO (07:57)
[2016-11-19] MEDS ORDERED: HYDR50CA PO (07:57)
[2016-11-19] MEDS ORDERED: OXYC-395 PO (07:57)
[2016-11-19] MEDS ORDERED: CLON.1 PO (07:57)
--- NOTE | 2016-11-19 07:58 | HHI.DCPOC ---
Discharge Care Plan Report Symptoms to Your Doctor -Temperature above 100.5 degrees -Redness, of incision or excessive or foul smelling drainage -Unusual pain or calf pain -Increased vaginal bleeding -Painful or difficulty urinating -Feelings of extreme sadness or anxiety after 2 weeks Goals to Promote Your Health * To prevent worsening of your condition and complications * To maintain your health at the optimal level Consider [facility] Follow up with Dr. Donahue for opioid MAT after 6 weeks RTO one week can only have one week of scripts at a time. need to discuss contraception Directions to Meet Your Goals Take your medications as prescribed Follow your dietary instruction Follow activity as directed Ensure plenty of rest for recovery Drink fluids for hydration Keep your appointments as scheduled Take your immunizations and boosters as scheduled If your symptoms worsen call your PCP, if no PCP go to Urgent Care Center or Emergency Room Smoking is Dangerous to Your Health. Avoid second hand smoke Call the 24-hour crisis hotline for domestic abuse at Yadira Lacey MD Nov 19, 2016 07:58
[2016-11-19] MEDS: NICOTINE 21 MG/24 HR PATCH T-DERMAL SCH (08:04)
[2016-11-19] MEDS: FERROUS SULFATE 325 MG (65 MG ELEMENTAL IRON) TAB PO SCH (08:04)
[2016-11-19] MEDS: REMOVE OLD NICODERM (NICOTINE) PATCH T-DERMAL SCH (08:05)
[2016-11-19] MEDS: ACETAMINOPHEN 325 MG TAB PO PRN (09:05)
[2016-11-19] MEDS: ONDANSETRON ODT 4 MG TAB PO PRN (09:10)
[2016-11-20 10:21] LABS: PHENCYCLIDINE URINE NEG (NEG)
[2016-11-20 10:22] LABS: BATH SALTS (MDPV) UR NEG (NEG); ECSTASY (MDMA) UR NEG (NEG); HEROIN (6-ACETYLMORPHINE) UR NEG (NEG); K2 SPICE UR NEG (NEG)
[2016-11-20 10:25] LABS: GABAPENTIN UR NEG (NEG); HYDROMORPHONE U NEG (NEG)
[2016-11-20 10:26] LABS: OBMETHADONE UR POS (NEG)
== END 2016-11-19 19:27 | disposition home or self-care (01) | DRG 765 ==
LOC: HOBED 20:58 → H2EA 11-16 00:11 → OBSVTOIN 11-16 00:11 → H1EA 11-16 15:16
PROVIDERS: ADMIT Obstetrics & Gynecology; ATTEND Obstetrics & Gynecology
PROC: 10D00Z1 Extraction of Products of Conception, Low, Open Approach (ICD-10-PCS; principal; 2016-11-16)
PROC: 0HB7XZZ Excision of Abdomen Skin, External Approach (ICD-10-PCS; 2016-11-16)
DX: O36.5930 Maternal care for other known or suspected poor fetal growth, third trimester, not applicable or unspecified (principal); O99.324 Drug use complicating childbirth; O34.211 Maternal care for low transverse scar from previous cesarean delivery; F32.9 Major depressive disorder, single episode, unspecified; D64.9 Anemia, unspecified; O99.02 Anemia complicating childbirth; O43.893 Other placental disorders, third trimester; L91.0 Hypertrophic scar; O99.334 Smoking (tobacco) complicating childbirth; F17.210 Nicotine dependence, cigarettes, uncomplicated; Z3A.37 37 weeks gestation of pregnancy; Z37.0 Single live birth; F41.0 Panic disorder [episodic paroxysmal anxiety]; F43.10 Post-traumatic stress disorder, unspecified; F90.9 Attention-deficit hyperactivity disorder, unspecified type; O76 Abnormality in fetal heart rate and rhythm complicating labor and delivery; O99.344 Other mental disorders complicating childbirth; Z91.14 Patient's other noncompliance with medication regimen; Z91.19 Patient's noncompliance with other medical treatment and regimen; F19.10 Other psychoactive substance abuse, uncomplicated; G89.29 Other chronic pain; M54.9 Dorsalgia, unspecified; F11.129 Opioid abuse with intoxication, unspecified
CPT/HCPCS: 59025; 76816; 76819; 76937; 80307; 81001; 85025; C9290; G0378; G0481; J0131; J0690; J1100; J1885; J2250; J2274; J2405; J2590; J7120

== ENCOUNTER 2016-11-20 11:26 | Emergency (ER) | payer MEDICAID ==
[~2016-11-20] VITALS: Ht 160 cm; Wt 56.5 kg
[~2016-11-20 11:26] MED LIST changes: +FERR325T20 PO; -LISI-360 PO; -METH10TA PO; -XANA1TAB6 PO
[2016-11-20 11:31] VITALS: BP 150/84; PULSE 73; RESP 16; TEMP 99.3; O2SAT 100
== END 2016-11-20 12:25 | disposition left against medical advice (07) ==
LOC: NED 11:26
DX: Z53.21 Procedure and treatment not carried out due to patient leaving prior to being seen by health care provider (principal)
CPT/HCPCS: 99281

== ENCOUNTER 2016-11-20 12:50 | Emergency (ER) | payer MEDICAID ==
[2016-11-20 13:13] VITALS: BP 155/83; PULSE 63; RESP 16; TEMP 99.5; O2SAT 98
[2016-11-20 13:47] LABS: AUTOMATED NEUTROPHIL # 6.2 TH/MM3 (1.8-7.7); BASOPHIL % 0.1 % (0.0-2.0); EOSINOPHIL % 0.1 % (0.0-4.0); HEMO FLAGS DIFF FINAL; LYMPH % 29.8 % (9.0-44.0); LYMPHOCYTE # 2.8 TH/MM3 (1.0-4.8); MEAN CELL VOLUME 87.1 FL (80.0-100.0); MEAN CORPUSCULAR HEMOGLOBIN 29.9 PG (27.0-34.0); MEAN CORPUSCULAR HGB CONC 34.3 % (32.0-36.0); MONO % 3.9 % (0.0-8.0); NEUT % 66.1 % (16.0-70.0); PLATELET COUNT 502 TH/MM3 (150-450); RED BLOOD COUNT 3.56 MIL/MM3 (4.00-5.30); RED CELL DISTRIBUTION WIDTH 12.9 % (11.6-17.2); WHITE BLOOD COUNT 9.5 TH/MM3 (4.0-11.0)
--- NOTE | 2016-11-20 13:59 | PD ---
HPI Chief Complaint: Medical Clearance Time Seen by Provider: 13:36 Travel History International Travel<30 days: No Contact w/Intl Traveler<30days: No Traveled to known affect area: No History of Present Illness HPI Patient is a 31-year-old female who presents to emergency room after she had a C -section on November 16, [address] Lacey. Patient reports that she was discharged from the hospital yesterday, reports that she was given a script for her chronic pain as well as anxiety attacks. Reports that she tried to go to the pharmacy but they would not fill her xanax script as she is too early for refills. Reports that she had a "seizure episode" while in the parking lot and hit her head on the ground. Reports no history of seizures in the past. Patient 's seizure was unwitnessed. Patient does admit to taking xanax for panic attacks. Patient with no headaches at this time, denies any vision changes, denies n/v. Denies any abdominal pain. No other c/o at this time PFSH Past Medical History Hx Anticoagulant Therapy: No Anxiety: Yes Cardiovascular Problems: No Chemotherapy: No Cerebrovascular Accident: No Diabetes: No Diminished Hearing: No Hypertension: Yes Musculoskeletal: Yes (Herniated/Bulging Disc, chronic Back Pain ) Psychiatric: Yes (PTSD) Respiratory: No ?: Not : 3 Para: 0 Miscarriage: 2 : 0 Past Surgical History Gynecologic Surgery: Yes (bilateral ovarian cyst removed ) Hysterectomy: No Social History Alcohol Use: No Tobacco Use: Yes Substance Use: Yes (NO LONGER ON METHADONE 11/20) Allergies-Medications (Allergen,Severity, Reaction): Uncoded Allergies: SULFA (Allergy, Severe, hives, 11/16/16) Reported Meds & Prescriptions Reported Meds & Active Scripts Active Oxycodone (Oxycodone HCl) 10 Mg Tab 30 Mg PO Q6H 7 Days Ferosul (Ferrous Sulfate) 325 Mg (65 Mg Iron) Tablet 325 Mg PO DAILY 30 Days Catapres (Clonidine) 0.1 Mg Tab 0.1 Mg PO Q6H PRN 7 Days Hydroxyzine Pamoate 50 Mg Cap 50 Mg PO Q6H PRN 2 Days Xanax (Alprazolam) 1 Mg Tab 1 Mg PO Q8HR PRN 2 Days Review of Systems General / Constitutional: No: Fever Eyes: No: Visual changes HENT: No: Headaches Cardiovascular: No: Chest Pain or Discomfort Respiratory: No: Shortness of Breath Gastrointestinal: No: Abdominal Pain Genitourinary: No: Dysuria Musculoskeletal: No: Pain Skin: No Rash Neurologic: Positive: Seizures, No: Weakness Psychiatric: No: Depression Endocrine: No: Polydipsia Hematologic/Lymphatic: No: Easy Bruising Physical Exam Narrative GENERAL:nad SKIN: Focused skin assessment warm/dry. HEAD: Atraumatic. Normocephalic. EYES: Pupils equal and round. No scleral icterus. No injection or drainage. ENT: No nasal bleeding or discharge. Mucous membranes pink and moist. NECK: Trachea midline. No JVD. CARDIOVASCULAR: Regular rate and rhythm. No murmur appreciated. RESPIRATORY: No accessory muscle use. Clear to auscultation. Breath sounds equal bilaterally. GASTROINTESTINAL: Abdomen soft, non-tender, nondistended. Hepatic and splenic margins not palpable. MUSCULOSKELETAL: No obvious deformities. No clubbing. No cyanosis. No edema. Patient with track blanco to b/l ac's NEUROLOGICAL: Awake and alert. No obvious cranial nerve deficits. Motor grossly within normal limits. Normal speech. PSYCHIATRIC: Appropriate mood and affect; insight and judgment normal. Data Data Last Documented VS Vital Signs Date Time Temp Pulse Resp B/P (MAP) Pulse Ox O2 Delivery O2 Flow Rate FiO2 11/20/16 15:49 68 16 157/84 (108) 100 Room Air 11/20/16 13:13 99.5 Orders Orders Complete Blood Count With Diff (11/20/16 13:08) Basic Metabolic Panel (Bmp) (11/20/16 13:08) Alcohol (Ethanol) (11/20/16 13:53) Drug Screen, Random Urine (11/20/16 13:53) Ct Brain W/O Iv Contrast(Rout) (11/20/16 ) Blood Glucose (11/20/16 13:53) Ecg Monitoring (11/20/16 13:53) Iv Access Insert/Monitor (11/20/16 13:53) Oximetry (11/20/16 13:53) Ua Includes Microscopic (11/20/16 13:53) Sodium Chlor 0.9% 1000 Ml Inj (Ns 1000 M (11/20/16 14:00) Alprazolam (Xanax) (11/20/16 15:15) Labs Laboratory Tests Test 11/20/16 13:10 11/20/16 14:01 11/20/16 14:05 White Blood Count 9.5 TH/MM3 Red Blood Count 3.56 MIL/MM3 Hemoglobin 10.6 GM/DL Hematocrit 31.0 % Mean Corpuscular Volume 87.1 FL Mean Corpuscular Hemoglobin 29.9 PG Mean Corpuscular Hemoglobin Concent 34.3 % Red Cell Distribution Width 12.9 % Platelet Count 502 TH/MM3 Mean Platelet Volume 7.7 FL Neutrophils (%) (Auto) 66.1 % Lymphocytes (%) (Auto) 29.8 % Monocytes (%) (Auto) 3.9 % Eosinophils (%) (Auto) 0.1 % Basophils (%) (Auto) 0.1 % Neutrophils # (Auto) 6.2 TH/MM3 Lymphocytes # (Auto) 2.8 TH/MM3 Monocytes # (Auto) 0.4 TH/MM3 Eosinophils # (Auto) 0.0 TH/MM3 Basophils # (Auto) 0.0 TH/MM3 CBC Comment DIFF FINAL Differential Comment Blood Urea Nitrogen 7 MG/DL Creatinine 0.67 MG/DL Random Glucose 94 MG/DL Calcium Level 8.8 MG/DL Sodium Level 141 MEQ/L Potassium Level 3.8 MEQ/L Chloride Level 107 MEQ/L Carbon Dioxide Level 25.7 MEQ/L Anion Gap 8 MEQ/L Estimat Glomerular Filtration Rate 102 ML/MIN Ethyl Alcohol Level LESS THAN 3 MG/DL Urine Color YELLOW Urine Turbidity CLEAR Urine pH 7.5 Urine Specific [place] 1.016 Urine Protein TRACE mg/dL Urine Glucose (UA) NEG mg/dL Urine Ketones NEG mg/dL Urine Occult Blood MOD Urine Nitrite NEG Urine Bilirubin NEG Urine Urobilinogen 4.0 MG/DL Urine Leukocyte Esterase NEG Urine RBC 24 /hpf Urine WBC 1 /hpf Urine Squamous Epithelial Cells 1 /hpf Urine Mucus FEW /lpf Urine Opiates Screen NEG Urine Barbiturates Screen NEG Urine Amphetamines Screen NEG Urine Benzodiazepines Screen POS Urine Cocaine Screen NEG Urine Cannabinoids Screen NEG MDM Medical Decision Making Medical Screen Exam Complete: Yes Emergency Medical Condition: Yes Medical Record Reviewed: Yes Interpretation(s) Vital Signs Date Time Temp Pulse Resp B/P (MAP) Pulse Ox O2 Delivery O2 Flow Rate FiO2 11/20/16 13:13 99.5 63 16 155/83 (107) 98 Room Air Differential Diagnosis Differential includes drug abuse, anxiety reaction, panic disorder, questionable seizure activity, electrolyte abnormality, arrhythmia Narrative Course 31-year-old female who presents to emergency room for evaluation of possible seizure activity. Patient reports that she was discharged from the hospital after she had a earlier this week. Reports that she went to the pharmacy to get her prescription filled for Xanax as well as oxycodone, reports that she was unable to fill her scripts as she is too early for refill. Reports that she had a "seizure episode" x 1 prior to coming to the ER today Patient was alert and oriented 3, she has no focal neurological deficits. Patient's medical records were reviewed, patient has strong history of IV drug abuse, anxiety, depression, PTSD, panic disorder, she is currently taking Xanax 1 mg 3 times a day for this. She does not have history of seizures. Patient was placed on a supplier quality engineer upon arrival to the emergency room. CT of the head ordered. Plan to obtain basic lab work and monitor patient. Vital Signs Date Time Temp Pulse Resp B/P (MAP) Pulse Ox O2 Delivery O2 Flow Rate FiO2 11/20/16 14:08 100 Room Air 11/20/16 13:13 99.5 63 16 155/83 (107) 98 Room Air Laboratory Tests Test 11/20/16 13:10 11/20/16 14:01 11/20/16 14:05 White Blood Count 9.5 TH/MM3 (4.0-11.0) Red Blood Count 3.56 MIL/MM3 (4.00-5.30) Hemoglobin 10.6 GM/DL (11.6-15.3) Hematocrit 31.0 % (35.0-46.0) Mean Corpuscular Volume 87.1 FL (80.0-100.0) Mean Corpuscular Hemoglobin 29.9 PG (27.0-34.0) Mean Corpuscular Hemoglobin Concent 34.3 % (32.0-36.0) Red Cell Distribution Width 12.9 % (11.6-17.2) Platelet Count 502 TH/MM3 (150-450) Mean Platelet Volume 7.7 FL (7.0-11.0) Neutrophils (%) (Auto) 66.1 % (16.0-70.0) Lymphocytes (%) (Auto) 29.8 % (9.0-44.0) Monocytes (%) (Auto) 3.9 % (0.0-8.0) Eosinophils (%) (Auto) 0.1 % (0.0-4.0) Basophils (%) (Auto) 0.1 % (0.0-2.0) Neutrophils # (Auto) 6.2 TH/MM3 (1.8-7.7) Lymphocytes # (Auto) 2.8 TH/MM3 (1.0-4.8) Monocytes # (Auto) 0.4 TH/MM3 (0-0.9) Eosinophils # (Auto) 0.0 TH/MM3 (0-0.4) Basophils # (Auto) 0.0 TH/MM3 (0-0.2) CBC Comment DIFF FINAL Differential Comment Blood Urea Nitrogen 7 MG/DL (7-18) Creatinine 0.67 MG/DL (0.50-1.00) Random Glucose 94 MG/DL (74-106) Calcium Level 8.8 MG/DL (8.5-10.1) Sodium Level 141 MEQ/L (136-145) Potassium Level 3.8 MEQ/L (3.5-5.1) Chloride Level 107 MEQ/L (98-107) Carbon Dioxide Level 25.7 MEQ/L (21.0-32.0) Anion Gap 8 MEQ/L (5-15) Estimat Glomerular Filtration Rate 102 ML/MIN (>89) Ethyl Alcohol Level LESS THAN 3 MG/DL (0-5) Urine Color YELLOW (YELLW/STRAW) Urine Turbidity CLEAR (CLEAR) Urine pH 7.5 (5.0-8.5) Urine Specific [place] 1.016 (1.002-1.035) Urine Protein TRACE mg/dL (NEG-TRACE) Urine Glucose (UA) NEG mg/dL (NEG) Urine Ketones NEG mg/dL (NEG) Urine Occult Blood MOD (NEG) Urine Nitrite NEG (NEG) Urine Bilirubin NEG (NEG) Urine Urobilinogen 4.0 MG/DL (LESS THAN Urine Leukocyte Esterase NEG (NEG) Urine RBC 24 /hpf (0-3) Urine WBC 1 /hpf (0-5) Urine Squamous Epithelial Cells 1 /hpf (0-5) Urine Mucus FEW /lpf (OCC) Urine Opiates Screen NEG (NEG) Urine Barbiturates Screen NEG (NEG) Urine Amphetamines Screen NEG (NEG) Urine Benzodiazepines Screen POS (NEG) Urine Cocaine Screen NEG (NEG) Urine Cannabinoids Screen NEG (NEG) CT of the head with no acute intracranial abnormalities. Patient with no seizure activity while in the ER. Patient with most likely benzodiazepine withdrawal. Patient was observed in ER for 3 hours. Plan to give a dose of xanax in the ER. She will need to follow up with her pcp as soon as possible. Signs and symptoms of when to return to the ER was reviewed with patient in detail Diagnosis Primary Impression: Benzodiazepine dependence Additional Impressions: Benzodiazepine withdrawal Seizure Referrals: Garrett Arias MD Patient Instructions: General Instructions Additional Instructions: Please follow up with neurologist for further testing for possible seizure activity Please do not drive a car until you are seen and cleared by neurologist Please follow up with your primary care doctor as well as operations and intelligence assistant as scheduled. Return to ER if symptoms worsen or persist. Return to ER as needed Disposition: 01 DISCHARGE HOME Condition: Stable Belem Yung DO Nov 20, 2016 13:59
[2016-11-20] MEDS ORDERED: SODIUM CHLOR 0.9% 1000 ML INJ 1,000 ML IV ONE (14:00)
[2016-11-20] MEDS ORDERED: LORazepam 2 MG/ML VIAL IV PUSH ONE (14:00)
[2016-11-20 14:06] LABS: BICARBONATE 25.7 MEQ/L (21.0-32.0); POTASSIUM 3.8 MEQ/L (3.5-5.1)
[2016-11-20 14:08] VITALS: O2SAT 100
[2016-11-20 14:25] LABS: BLOOD, URINE MOD (NEG); GLUCOSE,URINE NEG (NEG); KETONE, URINE NEG (NEG); MUCUS URINE FEW /lpf (OCC); NITRITE,URINE NEG (NEG); PH, URINE 7.5 (5.0-8.5); SQUAMOUS EPITHELIAL CELL URINE 1 /hpf (0-5); URINE COLOR YELLOW (YELLW/STRAW)
--- NOTE | 2016-11-20 15:11 | RADRPT ---
EXAM DATE/TIME: 11/20/2016 14:29 [facility] COMPARISON: No previous studies available for comparison. INDICATIONS : Seizures. RADIATION DOSE: 56.35 CTDIvol (mGy) MEDICAL HISTORY : Hypertension. SURGICAL HISTORY : None. ENCOUNTER: Initial ACUITY: 1 day PAIN SCALE: 0/10 LOCATION: cranial TECHNIQUE: Multiple contiguous axial images were obtained of the head. Using automated exposure control and adj ustment of the mA and/or kV according to patient size, radiation dose was kept as low as reasonably a chievable to obtain optimal diagnostic quality images. DICOM format image data is available electro nically for review and comparison. FINDINGS: CEREBRUM: The ventricles are normal for age. No evidence of midline shift, mass lesion, hemorrhage or acute in farction. No extra-axial fluid collections are seen. POSTERIOR FOSSA: The cerebellum and brainstem are intact. The 4th ventricle is midline. The cerebellopontine angle i s unremarkable. EXTRACRANIAL: The visualized portion of the orbits is intact. SKULL: The calvaria is intact. No evidence of skull fracture. CONCLUSION: No acute intracranial findings. Chun Zhang MD on November 20, 2016 at 15:08 Board Certified Radiologist. This report was verified electronically.
[2016-11-20] MEDS ORDERED: ALPRAZolam 1 MG TAB PO ONE (15:15)
[2016-11-20 15:49] VITALS: BP 157/84; PULSE 68; RESP 16; O2SAT 100
== END 2016-11-20 16:42 | disposition home or self-care (01) ==
LOC: NEPD 12:50
DX: F13.239 Sedative, hypnotic or anxiolytic dependence with withdrawal, unspecified (principal); R56.9 Unspecified convulsions; I10 Essential (primary) hypertension; Z72.0 Tobacco use; Z86.59 Personal history of other mental and behavioral disorders; Z87.39 Personal history of other diseases of the musculoskeletal system and connective tissue
CPT/HCPCS: 70450; 80048; 80307; 81001; 85025; 96360; 99285; J7030